=== PATIENT | female | born 2000 | race Caucasian/White ===

== ENCOUNTER 2020-04-12 19:49 | Emergency (ER) | payer BC, OTHER ==
[~2020-04-12] VITALS: Ht 165.1 cm; Wt 61.4 kg
[2020-04-12 22:22] VITALS: BP 118/64; PULSE 84; TEMP 98.5
== END 2020-04-12 22:46 | disposition home or self-care (01) ==
LOC: COL.ER 19:49
DX: S01.01XA Laceration without foreign body of scalp, initial encounter (principal); V00.831A Fall from motorized mobility scooter, initial encounter; Y92.410 Unspecified street and highway as the place of occurrence of the external cause

== ENCOUNTER → 2020-04-18 | Outpatient (CLI) | payer BC, OTHER ==
[2020-04-18 12:36] VITALS: BP 113/61; PULSE 95; TEMP 98.6
== END ==
LOC: COL.ER 12:18
DX: Z48.02 Encounter for removal of sutures (principal)